=== PATIENT | female | born 1980 ===

== ENCOUNTER 2019-01-23 06:00 | Day surgery (SDC) | payer OTHER ==
[2019-01-23 06:59] VITALS: BMI 40.4
[2019-01-23] MEDS ORDERED: ceFOXitin IV 1 gm/100 ml in NS 2 GM/200 ML BAG ONE (07:32)
[2019-01-23] MEDS ORDERED: Midazolam 2 MG/2 ML VIAL ONE (07:38)
[2019-01-23] MEDS ORDERED: Propofol 10 mg/ml Inj (20 ML) ONE (07:38)
[2019-01-23] MEDS ORDERED: Rocuronium 10 mg/ml (5 ml) ONE (07:42)
[2019-01-23] MEDS ORDERED: Neostigmine 1:1000 (1 mg/ml) Inj ONE (08:39)
[2019-01-23] MEDS ORDERED: HYDROmorphone 0.5 mg/0.5 ml ISec IVP PRN (08:55)
[2019-01-23 12:23] VITALS: BP 106/65; PULSE 58; RESP 18; TEMP 97.7; O2SAT 99
--- NOTE | 2019-01-23 18:26 | OP ---
PROCEDURE DATE: 01/23/2019 PREOPERATIVE DIAGNOSIS: Multiparity, desired sterilization, ovarian cyst. POSTOPERATIVE DIAGNOSIS: Bilateral polycystic ovaries. The patient is status post bilateral tubal ligation. PROCEDURE: Laparoscopy, bilateral salpingectomy, dilatation and curettage of the uterus. SURGEON: Bhakti Noland MD SLEEP SCIENTIST: Regan Calderón MD FINDINGS: Normal-sized uterus and endocervical curettings. The patient is status post bilateral tubal ligation. TYPE OF ANESTHESIA: General. ESTIMATED BLOOD LOSS: 2 mL. COMPLICATIONS: Nil. INDICATIONS FOR THE PROCEDURE: After the risks, benefits, and alternatives of the planned procedures including but not limited to infection, hemorrhage, deep vein thrombosis, atelectasis, pneumonia, pulmonary embolism, damage to the bladder, damage to ureter, renal insufficiency, renal failure, wound infection, wound dehiscence, incisional hernia, keloid formation, damage to large and small intestines, damage to inferior vena cava and aorta requiring extensive repair, anesthesia complications, electrolyte imbalance, possibility of , fluid overload, cerebral edema, embolism, and other complications that were discussed, but are not listed above have been explained to the patient and all her questions answered, informed consent was obtained. Risks of recurrence and ectopic were discussed with the patient. DESCRIPTION OF PROCEDURE: The patient was taken to the operating room in a stable condition and under a suitable level of general anesthesia, she was prepped and draped in a sterile fashion after having been placed in a dorsal lithotomy position. Weighted speculum was inserted into the vagina. The anterior lip of the cervix was grasped using a single-tooth tenaculum and endocervical curettage was performed and scant tissue was obtained. The uterus was sounded to 7 cm. The cervix was dilated to a #18 Hanks dilator. Endometrial curettage was performed and scant tissue was obtained. A HUMI catheter was inserted into the cervix and insufflated into place. Through the left upper quadrant, [place]org[place] incision, a 5-mm trocar and sleeve were inserted under laparoscopic guidance. Pneumoperitoneum of 3 L was created. A 5-mm puncture site was made three fingerbreadths above the pubic symphysis through which a 5-mm trocar and sleeve were inserted. Trocar was removed, replaced by probe, and a 5-mm puncture site was made in the right iliac fossa through which a 5-mm trocar and sleeve were inserted. Trocar was removed and replaced by a grasper. The LigaSure was then inserted through the suprapubic port and the right fallopian tube was resected tacking at the cornua and resecting the entire mesosalpinx. The left proximal segment of the left fallopian tube was resected. The proximal part of the distal segment was firmly embedded into the sigmoid colon and this portion was left in place. However, the distal fimbriated end was resected and submitted to pathology. At the end of the procedure, peritoneal cavity was irrigated using copious amounts of saline. Saline was evacuated. The suprapubic and right iliac fossa sleeves were removed under laparoscopic guidance. Abdomen was deflated with carbon dioxide and the left upper quadrant sleeve was removed under laparoscopic guidance. The skin incisions were then closed using 4-0 Monocryl. Estimated blood loss for the procedure was less than 1 mL. Pad, needle, and instrument counts were correct x2. There were no complications. Bhakti Noland MD
== END 2019-01-23 12:25 | disposition home or self-care (01) ==
LOC: C.SDS 06:00
PROVIDERS: ATTEND Obstetrics & Gynecology Reproductive Endocrinology
DX: E28.2 Polycystic ovarian syndrome (principal); Z98.51 Tubal ligation status
CPT/HCPCS: 58120; 58661; 88302; 88305; J1885; J2250; J2405; J2704; J2710; J3010